=== PATIENT | male | born 1995 | race Caucasian/White ===

== ENCOUNTER 2019-05-22 20:27 | Emergency (ER) | payer MEDICAID ==
[~2019-05-22] VITALS: Ht 185.4 cm; Wt 108.9 kg
--- NOTE | 2019-05-22 20:31 | NUR ---
ED Nurse Note: called and not in waiting room
[2019-05-22 21:10] VITALS: BP 117/80
--- NOTE | 2019-05-22 21:12 | Emergency Room Report ---
History of Present Illness General Chief Complaint: Medical Clearance Source: Patient Present Illness HPI This a 23-year-old male with no past medical history. He was sent in from a psychiatric facility for medical clearance. 4 days ago, he was depressed and took 4 boxes of DMX in a suicide attempt. He said he was sleep for 2 days. He woke up and was no longer suicidal and want to get help. He actually checked himself into a psychiatric facility. During the process he said he felt his heart was squeezing. He called 911. EMS said his EKG looks fine. Probably had a panic attack. They told the staff there and they sent him here for medical clearance. Patient denies suicidal thoughts homicidal thought. Denies any chest pain. Denies any other drug use and marijuana. Did not take any Tylenol or Motrin. He said he felt better now but was told to get medical clearance before he can go back. Allergies: Uncoded Allergies: PCN (Allergy, Unknown, 05/22/19) Patient History Past Medical History: see triage record, old chart reviewed Past Surgical History: none Pertinent Family History: none Social History: Reports: smoking Immunizations: other Reviewed Nursing Documentation: PMH: Agreed; PSxH: Agreed Nursing Documentation-PMH Hx Asthma: Yes Review of Systems Eye: Denies: eye pain, blurred vision ENT: Denies: ear pain, nose congestion, throat swelling Respiratory: Denies: cough, shortness of breath Cardiovascular: Denies: chest pain, palpitations Gastrointestinal: Denies: abdominal pain, diarrhea, nausea, vomiting Musculoskeletal: Denies: back pain, joint pain Skin: Denies: rash Neurological: Denies: headache, numbness Endocrine: Denies: increased thirst, increased urine Hematologic/Lymphatic: Denies: easy bruising All Other Systems: negative except mentioned in HPI Physical Exam Vital Signs Date Time Temp Pulse Resp B/P (MAP) Pulse Ox O2 Delivery O2 Flow Rate FiO2 05/22/19 20:48 98.1 120 18 117/80 (92) 94 Room Air Notes with tachycardia Sp02 EP Interpretation: reviewed, normal General Appearance: well appearing, no apparent distress, alert Head: normocephalic, atraumatic Eyes: bilateral eye PERRL, bilateral eye EOMI ENT: hearing grossly normal, normal pharynx Neck: full range of motion, supple, no meningismus Respiratory: chest non-tender, lungs clear, normal breath sounds Cardiovascular #1: regular rate, rhythm, no murmur Gastrointestinal: normal bowel sounds, non tender, no mass, no organomegaly, no bruit, non-distended Musculoskeletal: back normal, normal range of motion, gait/station normal Psychiatric: mood/affect normal Medical Decision Making Diagnostic Impression: Primary Impression: Overdose Qualified Codes: T50.902A - Poisoning by unspecified drugs, medicaments and biological substances, intentional self-harm, initial encounter ER Course Patient presents with intentional overdose few days ago. Started on [facility] a psychiatric facility already. He is medically clear. No adverse effect. Heart rate normalized. Will discharge back to the facility. Last Vital Signs Date Time Temp Pulse Resp B/P (MAP) Pulse Ox O2 Delivery O2 Flow Rate FiO2 05/22/19 20:48 98.1 120 18 117/80 (92) 94 Room Air Status: improved Disposition: HOME, SELF-CARE Condition: Stable Additional Instructions: Continue with rehab and psychiatric treatment. You are medically clear for it. Follow-up with your doctor in 7 days as needed. Return if worse. Ho Yousif MD May 22, 2019 21:12
[2019-05-22 22:03] LABS: APPEARANCE,URINE CLEAR; BILIRUBIN, URINE NEGATIVE (NEGATIVE); COLOR,URINE PALE YELLOW; GLUCOSE, URINE (UA) NEGATIVE (NEGATIVE); KETONES,URINE 1+ (NEGATIVE); LEUKOCYTE ESTERASE ,URINE NEGATIVE (NEGATIVE); NITRITE,URINE NEGATIVE (NEGATIVE); PH,URINE 6 (4.5-8.0); PROTEIN,URINE NEGATIVE (NEGATIVE); UROBILINOGEN,URINE NORMAL MG/DL (0.0-1.0)
[2019-05-22 22:11] LABS: BASOPHILS % (AUTO) 1.9 % (0.0-2.0); EOSINOPHILS % (AUTO) 3.3 % (0.0-3.0); HEMATOCRIT 46.3 % (42.0-52.0); HEMOGLOBIN 16.8 G/DL (14.2-18.0); MEAN CORPUSCULAR VOLUME 87 FL (80-99); MONOCYTES % (AUTO) 7.3 % (1.0-10.0); NEUTROPHILS % (AUTO) 52.4 % (45.0-75.0); PLATELET COUNT 283 K/UL (150-450); RED BLOOD COUNT 5.32 M/UL (4.70-6.10); WHITE BLOOD COUNT 10.5 K/UL (4.8-10.8)
[2019-05-22 22:39] LABS: ANION GAP 13 mmol/L (5-15); BLOOD UREA NITROGEN 12 mg/dL (7-18); CALCIUM 9.4 MG/DL (8.5-10.1); CARBON DIOXIDE 24 MMOL/L (21-32); CHLORIDE 105 MMOL/L (98-107); CREATININE 1.1 MG/DL (0.55-1.30); POTASSIUM 3.9 MMOL/L (3.5-5.1); SODIUM 142 MMOL/L (136-145)
[2019-05-22 22:44] LABS: ALANINE AMINOTRANSFERASE 49 U/L (12-78); ALBUMIN 4.1 G/DL (3.4-5.0); ALKALINE PHOSPHATASE 103 U/L (46-116); ASPARTATE AMINO TRANSFERASE 24 U/L (15-37); BILIRUBIN,TOTAL 0.2 MG/DL (0.2-1.0)
--- NOTE | 2019-05-22 23:05 | NUR ---
ED Nurse Note: Pt cleared by health care Provider for discharge. DC instructions/prescription was given and explained to pt and verbalized understanding of teachings. All medical deviecs such as ID band removed. Pt is AAO x4, ambulatory and left with all personal belongings.
--- NOTE | 2019-05-22 23:05 | NUR ---
ED Nurse Note: Patient presents to ED after ingestion of cough meds, pt took 46+ pills of cough medicine, DXM x 2 days and states he has been asleep for 2 days and thinks he overdosed. Patient is currently at a mental health clinic and needs medical clearance. AAO x4, VSS at this time. Stated he needs EKG and lab work done.
== END 2019-05-22 23:05 | disposition home or self-care (01) ==
LOC: EMR 21:09
DX: T50.902A Poisoning by unspecified drugs, medicaments and biological substances, intentional self-harm, initial encounter (principal); Y92.9 Unspecified place or not applicable; Z88.0 Allergy status to penicillin
CPT/HCPCS: 36415; 80053; 80307; 81003; 85025; 93005; 96360; G0480; G0481; J7030; Z7502; 99284

== ENCOUNTER 2019-05-27 20:00 | Emergency (ER) | payer MEDICAID ==
[~2019-05-27] VITALS: Ht 185.4 cm; Wt 108.9 kg
--- NOTE | 2019-05-27 20:00 | NUR ---
ED Nurse Note: pt presents to ED via EMS arrival after ingesting 16 pills of demtromethorphan hydrobromide 30 mg to get a high. pt was seen and treated here for the same thing a few days ago. pt states that he is currentlystaing at a sober living facility right now and they called the ambulance. pt denies HI/SI, reports he took the meds to get a high and that the high has already "come and gone." Addendum: 05/27/19 at 2254 by LIANA CHA JOHNSON [id number]
--- NOTE | 2019-05-27 20:01 | NUR ---
ED Nurse Note: pt admits to taking the meds about 1.5 hours prior to arrival. denies any pain, difficulty breathing, N/V at this time. he does not appear to be in any acute distress
--- NOTE | 2019-05-27 20:05 | NUR ---
ED Nurse Note: SHERMAN conway # [id number] speaking wit pt
[2019-05-27] MEDS ORDERED: Sodium Chloride 3,300 ML IVLG ONE (20:30)
[2019-05-27 20:35] LABS: APPEARANCE,URINE CLEAR; BILIRUBIN, URINE NEGATIVE (NEGATIVE); COLOR,URINE PALE YELLOW; GLUCOSE, URINE (UA) NEGATIVE (NEGATIVE); KETONES,URINE NEGATIVE (NEGATIVE); LEUKOCYTE ESTERASE ,URINE NEGATIVE (NEGATIVE); NITRITE,URINE NEGATIVE (NEGATIVE); PH,URINE 5 (4.5-8.0); PROTEIN,URINE NEGATIVE (NEGATIVE); UROBILINOGEN,URINE NORMAL MG/DL (0.0-1.0)
[2019-05-27 20:40] LABS: BASOPHILS % (AUTO) 2.1 % (0.0-2.0); EOSINOPHILS % (AUTO) 3.1 % (0.0-3.0); HEMATOCRIT 46.6 % (42.0-52.0); HEMOGLOBIN 16.9 G/DL (14.2-18.0); LYMPHOCYTES % (AUTO) 31.1 % (20.0-45.0); MEAN CORPUSCULAR VOLUME 87 FL (80-99); MONOCYTES % (AUTO) 7.3 % (1.0-10.0); NEUTROPHILS % (AUTO) 56.4 % (45.0-75.0); PLATELET COUNT 277 K/UL (150-450); RED BLOOD COUNT 5.33 M/UL (4.70-6.10); RED CELL DISTRIBUTION WIDTH 11.1 % (11.6-14.8); WHITE BLOOD COUNT 9.5 K/UL (4.8-10.8)
[2019-05-27 21:01] LABS: ANION GAP 17 mmol/L (5-15); BLOOD UREA NITROGEN 12 mg/dL (7-18); CALCIUM 9.1 MG/DL (8.5-10.1); CARBON DIOXIDE 21 MMOL/L (21-32); CHLORIDE 107 MMOL/L (98-107); CREATININE 1.1 MG/DL (0.55-1.30); POTASSIUM 3.9 MMOL/L (3.5-5.1); SODIUM 145 MMOL/L (136-145)
[2019-05-27 21:06] LABS: ALANINE AMINOTRANSFERASE 53 U/L (12-78); ALKALINE PHOSPHATASE 110 U/L (46-116); ASPARTATE AMINO TRANSFERASE 23 U/L (15-37); BILIRUBIN,TOTAL 0.2 MG/DL (0.2-1.0); CREATINE KINASE 158 U/L (26-308)
[2019-05-27 21:29] VITALS: BP 148/90
--- NOTE | 2019-05-27 21:35 | NUR ---
ED Nurse Note: pt is repeating that he wants to leave, HR is 105. ERMD notified
--- NOTE | 2019-05-27 22:02 | Emergency Room Report ---
History of Present Illness General Chief Complaint: Overdose Source: Patient, EMS Present Illness HPI Patient transported by EMS after taking multiple pills. EMS brings in several allergy tablets. The patient says he took 16 of these. He says he wants to get high and denies suicidal or homicidal ideation. He is in a rehab facility. He denies any somatic complaints at this time. The patient was seen May 22 after intentional overdose. He had slept for 2 days. When he was evaluated he denied suicidal ideation or intent. He was discharged back to the rehab facility and advised to follow-up with psychiatric help. No fevers, chills, sore throat, chest pain, palpitations, nausea, vomiting, diarrhea, dysuria, abdominal pain, shortness of breath, joint pain, rashes, visual changes, dizziness, headache. History of epilepsy. No recent seizures. History of hepatitis. History of schizoaffective disorder. Allergies: Coded Allergies: PENICILLINS (Unverified Allergy, Unknown, 05/27/19) Uncoded Allergies: PCN (Allergy, Unknown, 05/22/19) Patient History Past Medical History: see triage record Social History: Reports: smoking; Denies: drug use Social History Narrative In rehab Reviewed Nursing Documentation: PMH: Agreed; PSxH: Agreed Nursing Documentation-PMH Hx Asthma: Yes Review of Systems All Other Systems: negative except mentioned in HPI Physical Exam Vital Signs Date Time Temp Pulse Resp B/P (MAP) Pulse Ox O2 Delivery O2 Flow Rate FiO2 05/27/19 19:44 98.2 90 20 148/90 (109) 98 Room Air Sp02 EP Interpretation: reviewed, normal General Appearance: well appearing, no apparent distress, GCS 15 Head: normocephalic, atraumatic Eyes: bilateral eye normal inspection, bilateral eye PERRL - 4 mm, bilateral eye EOMI, bilateral eye other - No rotatory or vertical nystagmus ENT: moist mucus membranes Neck: supple Respiratory: lungs clear, normal breath sounds Cardiovascular #1: tachycardia Cardiovascular #2: 2+ radial (R) Gastrointestinal: normal inspection, normal bowel sounds, non tender, no mass, non-distended Musculoskeletal: back normal, normal range of motion, gait/station normal Neurologic: alert, motor strength/tone normal, hog operator III-XII nml as tested, oriented x3, sensory intact, cerebellar normal, speech normal Psychiatric: mood/affect normal - Somewhat flat affect, no suicidal/homicidal ideation Skin: no rash, warm/dry Medical Decision Making Diagnostic Impression: Primary Impression: Substance abuse ER Course Patient presents after taking 16 [id number] allergy feels with alleged attempt to get high. Differential includes substance abuse, electrolyte imbalance, dehydration, suicide attempt amongst others. The patient is clear and denying suicidality at this time. Evaluation with EKG and labs. Treatment with IV hydration. Labs White count normal. EKG sinus tachycardia. Tox screen positive for PCP. In discussing tox screen patient denies PCP use. Occasionally there can be cross-reactivity with antihistamines. Patient again denies suicidal ideation or intent. The rehab facility requested us to try and get the patient admitted to a higher level of care. We discussed with them that on Wednesday evening this was nearly impossible and that they should pursue this themselves. Patient did not demonstrate risk to himself or other people at this time. Heart rate improved. Patient states he wants to return to the rehab facility. Patient stable for outpatient observation and treatment. Laboratory Tests Test 05/27/19 20:10 White Blood Count 9.5 K/UL (4.8-10.8) Red Blood Count 5.33 M/UL (4.70-6.10) Hemoglobin 16.9 G/DL (14.2-18.0) Hematocrit 46.6 % (42.0-52.0) Mean Corpuscular Volume 87 FL (80-99) Mean Corpuscular Hemoglobin 31.8 PG (27.0-31.0) H Mean Corpuscular Hemoglobin Concent 36.4 G/DL (32.0-36.0) H Red Cell Distribution Width 11.1 % (11.6-14.8) L Platelet Count 277 K/UL (150-450) Mean Platelet Volume 6.7 FL (6.5-10.1) Neutrophils (%) (Auto) 56.4 % (45.0-75.0) Lymphocytes (%) (Auto) 31.1 % (20.0-45.0) Monocytes (%) (Auto) 7.3 % (1.0-10.0) Eosinophils (%) (Auto) 3.1 % (0.0-3.0) H Basophils (%) (Auto) 2.1 % (0.0-2.0) H Urine Color Pale yellow Urine Appearance Clear Urine pH 5 (4.5-8.0) Urine Specific [place] 1.015 (1.005-1.035) Urine Protein Negative (NEGATIVE) Urine Glucose (UA) Negative (NEGATIVE) Urine Ketones Negative (NEGATIVE) Urine Blood Negative (NEGATIVE) Urine Nitrite Negative (NEGATIVE) Urine Bilirubin Negative (NEGATIVE) Urine Urobilinogen Normal MG/DL (0.0-1.0) Urine Leukocyte Esterase Negative (NEGATIVE) Sodium Level 145 MMOL/L (136-145) Potassium Level 3.9 MMOL/L (3.5-5.1) Chloride Level 107 MMOL/L (98-107) Carbon Dioxide Level 21 MMOL/L (21-32) Anion Gap 17 mmol/L (5-15) H Blood Urea Nitrogen 12 mg/dL (7-18) Creatinine 1.1 MG/DL (0.55-1.30) Estimate Glomerular Filtration Rate > 60 mL/min (>60) Glucose Level 113 MG/DL (74-106) H Calcium Level 9.1 MG/DL (8.5-10.1) Total Bilirubin 0.2 MG/DL (0.2-1.0) Aspartate Amino Transferase (AST) 23 U/L (15-37) Alanine Aminotransferase (ALT) 53 U/L (12-78) Alkaline Phosphatase 110 U/L (46-116) Total Creatine Kinase 158 U/L (26-308) Total Protein 7.9 G/DL (6.4-8.2) Albumin 4.0 G/DL (3.4-5.0) Globulin 3.9 g/dL Albumin/Globulin Ratio 1.0 (1.0-2.7) Salicylates Level 3.2 ug/mL (2.8-20) Urine Opiates Screen Negative (NEGATIVE) Acetaminophen Level < 2 MCG/ML (10-30) L Urine Barbiturates Screen Negative (NEGATIVE) Phencyclidine (PCP) Screen Positive (NEGATIVE) H Urine Amphetamines Screen Negative (NEGATIVE) Urine Benzodiazepines Screen Negative (NEGATIVE) Urine Cocaine Screen Negative (NEGATIVE) Urine Marijuana (THC) Screen Negative (NEGATIVE) Serum Alcohol < 3 mg/dL EKG Diagnostic Results Rate: tachycardiac Rhythm: NSR ST Segments: no acute changes Rhythm Strip Diag. Results EP Interpretation: yes Rhythm: no PVC's, no ectopy, other - Sinus tachycardia rate [address]-T wave changes Last Vital Signs Date Time Temp Pulse Resp B/P (MAP) Pulse Ox O2 Delivery O2 Flow Rate FiO2 05/27/19 22:10 98.2 90 20 148/90 98 Room Air Status: improved Disposition: HOME, SELF-CARE - rehab Condition: Improved Referrals: NOT CHOSEN IPA/,REFERRING (PCP) Kevin Rosa MD May 27, 2019 22:02
[2019-05-27 22:10] VITALS: BP 148/90
--- NOTE | 2019-05-27 22:10 | NUR ---
ED Nurse Note: Pt cleared by health care Provider for discharge. DC instructions were given and explained to pt. he verbalized understanding of teachings. All medical devices such as ID band and IV site removed. Pt is AAO x4, ambulatory and left with all personal belongings.
[2019-05-27] MEDS ORDERED: OMEPRAZOLE20 M2 ORAL (22:34)
[2019-05-27] MEDS ORDERED: KEPPRA500 M4 ORAL (22:34)
[2019-05-27] MEDS ORDERED: QUETIAPINE FUMA25 MG ORAL (22:34)
== END 2019-05-27 22:10 | disposition home or self-care (01) ==
LOC: EDBD 20:00 → EMR 21:25
DX: F19.10 Other psychoactive substance abuse, uncomplicated (principal); G40.909 Epilepsy, unspecified, not intractable, without status epilepticus; Z88.0 Allergy status to penicillin; F17.200 Nicotine dependence, unspecified, uncomplicated; R00.0 Tachycardia, unspecified
CPT/HCPCS: 36415; 80053; 80307; 81003; 82550; 85025; 93005; 96360; G0480; G0481; Z7502; 99284